=== PATIENT | female | born 1960 | race American Indian/Alaskan Native ===

== ENCOUNTER 2017-01-13 10:51 | Emergency (ER) | payer OTHER ==
[2017-01-13 11:42] LABS: Basophils % (Auto) 0.5 % (0.0-1.8); Eosinophils % (Auto) 4.6 % (0.0-4.3); Hematocrit 41.9 % (30.3-42.9); Hemoglobin 13.7 gm/dl (10.1-14.3); Mean Corpuscular HGB Conc 33 % (30-34); Mean Corpuscular Hemoglobin 30 pg (28-32); Mean Corpuscular Volume 91 fl (79-97); Platelet Count 193 K/mm3 (140-440); Red Blood Count 4.61 M/mm3 (3.65-5.03); Red Cell Distribution Width 15.7 % (13.2-15.2); White Blood Count 6.1 K/mm3 (4.5-11.0)
[2017-01-13 12:10] LABS: Anion Gap 18 mmol/L; Blood Urea Nitrogen 18 mg/dL (7-17); Calcium 8.9 mg/dL (8.4-10.2); Carbon Dioxide 25 mmol/L (22-30); Chloride 103.2 mmol/L (98-107); Glucose 110 mg/dL (65-100); Potassium 4.1 mmol/L (3.6-5.0); Sodium 142 mmol/L (137-145)
[2017-01-13 18:09] VITALS: BP 168/86
[2017-01-13] MEDS ORDERED: NORCO 5/325 PO ONE (18:44)
[2017-01-13] MEDS ORDERED: LASIX PO ONE (18:44)
--- NOTE | 2017-01-13 19:32 | Emergency Department Report ---
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 The patient reports 2 days of chest pain, constant since onset, 5/10 in severity, aching in quality. She has secondary complaint of bilateral ankle pain and swelling for the past 2 weeks, 7/10 in severity, tightness like in quality, exacerbated with granulation. She denies trauma to the chest or ankles. The patient also denies fever, cough, dyspnea, hemoptysis, unilateral leg swelling, recent immobilization, history of DVT or PE, recent cancer. ED Past Medical Hx - Past Medical History Previous Medical History?: Yes Hx Hypertension: Yes Additional medical history: High Cholesterol - Surgical History Past Surgical History?: No - Social History Smoking Status: Former Smoker Substance Use Type: None - Medications Home Medications: Home Medications Medication Instructions Recorded Confirmed Last Taken Type Furosemide [Lasix] 20 mg PO QDAY #14 tablet 01/13/17 Unknown Rx HYDROcodone/APAP 5-325 [Dos Rios 1 each PO ONCE #14 tablet 01/13/17 Unknown Rx 5-325 mg TAB] ED Review of Systems ROS: Stated complaint: BILAT FEET/ANKLES SWOLLEN Other details as noted in HPI Constitutional: denies: fever ENT: denies: throat or neck pain Respiratory: denies: cough, shortness of breath Cardiovascular: reports chest pain Endocrine: denies unexplained weight loss or gain Gastrointestinal: denies: abdominal pain, nausea Genitourinary: denies: dysuria Musculoskeletal: denies: leg swelling Skin: denies: rash Neurological: denies: headache Hematological/Lymphatic: denies: easy bleeding or easy bruising Psych: denies sadness or hopelessness Physical Exam - Physical Exam Vital Signs: Vital Signs 01/13/17 01/13/17 01/13/17 11:15 17:30 18:09 Temperature 97.7 F Pulse Rate 52 L 50 L Respiratory 16 16 16 Rate Blood Pressure 191/103 Blood Pressure 168/86 [Left] O2 Sat by Pulse 100 100 100 Oximetry 01/13/17 18:50 Temperature Pulse Rate Respiratory 16 Rate Blood Pressure Blood Pressure [Left] O2 Sat by Pulse Oximetry Physical Exam: General: well-nourished, well-developed, no acute distress Head: Normocephalic, atraumatic Eyes: normal sclera ENT: Mucous membranes are pink and moist Neck: trachea midline, neck supple, No neck stiffness, no cervical adenopathy Respiratory: Breath sounds equal bilaterally, no wheezing, rales, or rhonchi Cardio: S1 and S2 present, no murmurs, rubs, gallops, capillary refill is brisk Abdomen: Normoactive bowel sounds, soft abdomen, no rigidity, no guarding or rebound tenderness Chest WALL/Back: No tenderness to palpation of the chest wall, no CVA tenderness with percussion Musc: 1+ pitting edema of the bilateral lower extremities and bilateral medial and lateral malleolus tenderness to palpation, no redness, warmth, fluctuance, or crepitus, no obvious deformity, distal pulses intact, sensation, motor function, and pulses in the feet and toes intact bilaterally skin: No rash Neuro: no facial drooping, normal speech Psych: Normal affect ED Course Vital Signs 01/13/17 01/13/17 01/13/17 11:15 17:30 18:09 Temperature 97.7 F Pulse Rate 52 L 50 L Respiratory 16 16 16 Rate Blood Pressure 191/103 Blood Pressure 168/86 [Left] O2 Sat by Pulse 100 100 100 Oximetry 01/13/17 18:50 Temperature Pulse Rate Respiratory 16 Rate Blood Pressure Blood Pressure [Left] O2 Sat by Pulse Oximetry ED Medical Decision Making - Lab Data Result diagrams: 01/13/17 11:34 01/13/17 11:34 - Medical Decision Making The patient was seen and examined by myself. The patient is placed on a continuous improvement manager and continuous pulse ox. On initial evaluation, the patient was found to be in no distress. EKG was negative for findings suggestive of acute cardiac infarct. Labs and imaging are obtained. The patient given a tablet Dos Rios and Lasix for her pain and swelling. Chest x-ray is negative for pneumothorax, focal consolidation, pulmonary vascular congestion, pleural effusion, or other obvious acute cardiopulmonary disease process. Lab results were non-concerning including levels of troponin, WBC, hemoglobin, hematocrit, electrolytes, renal function. The patient was reevaluated and reported that their symptoms were markedly improved. As the patient has a ANGEL risk score less than 2, and a well's score less than 2, the patient is at low risk of ACS or pulmonary emboli etiology of their symptoms. The patient is stable for discharge with outpatient follow-up. The patient is given follow-up and return instructions. The patient expressed understanding and agreed with the plan. The patient is discharged in stable condition. Critical care attestation.: If time is entered above; I have spent that time in minutes in the direct care of this critically ill patient, excluding procedure time. ED Disposition Clinical Impression: Acute chest pain, Peripheral edema Bilateral ankle pain Qualifiers: Chronicity: acute Qualified Code(s): M25.571 - Pain in right ankle and joints of right foot Disposition: TO HOME OR SELFCARE Is pt being admited?: No Does the pt Need Aspirin: No Condition: Stable Instructions: Chest Pain (ED), Ankle Sprain (ED), Leg Edema (ED), Musculoskeletal Pain (ED) Additional Instructions: Do not take more than the prescribed dose of pain medicine, or combine or take the pain medicine prescribed to you today with other pain medicine, sleeping medicine or other sedatives, or with alcohol, as doing so may cause central nervous system sedation and respiratory depression, and potentially cause you to stop breathing and . Additionally, do not drive a vehicle, operate heavy machinery, or engage in any activity that would cause harm to yourself or others after taking the pain medicine prescribed to you. Prescriptions: Furosemide [Lasix] 20 mg PO QDAY #14 tablet HYDROcodone/APAP 5-325 [Dos Rios 5-325 mg TAB] 1 each PO ONCE #14 tablet Referrals: PRIMARY CARE, [Primary Care Provider] - 3-5 Days Time of Disposition: 19:28
--- NOTE | 2017-01-14 10:08 | XRay Report ---
AP CHEST: HISTORY: chest pain AP view of the chest demonstrates a normal mediastinal and cardiac contour with clear lungs and normal bony and soft tissue structures. IMPRESSION: Unremarkable AP chest.
== END 2017-01-13 19:44 | disposition home or self-care (01) ==
LOC: ED 10:51
DX: R07.9 Chest pain, unspecified (principal); R60.9 Edema, unspecified; M25.571 Pain in right ankle and joints of right foot; M25.572 Pain in left ankle and joints of left foot; I10 Essential (primary) hypertension; E78.00 Pure hypercholesterolemia, unspecified; Z87.891 Personal history of nicotine dependence
CPT/HCPCS: 36415; 71010; 80048; 84484; 85025; 93005; 93010